=== PATIENT | male | born 1950 | race Caucasian/White ===

== ENCOUNTER 2023-09-30 08:40 | Outpatient (REF) | payer MEDICARE, SELFPAY ==
--- NOTE | ~2023-09-30 | XR_ITS ---
EXAMINATION: XR LUMBOSACRAL SPINE WITH OBLIQUES CLINICAL INFORMATION: Lumbar degenerative disc disease. COMPARISON: None available. TECHNIQUE: AP, both oblique, and lateral views of the lumbar spine. Lateral view of the lumbosacral junction. FINDINGS: There is bony demineralization. There is a mild lumbar levoscoliosis. There is a moderate T12 anterior wedge compression fracture. There are mild L1 and L4 anterior compression fractures. There is moderate rightward disc space narrowing at L3-L4, and moderately severe disc space narrowing is seen at L4-L5 and L5-S1. There is multi-level lumbar spondylosis and facet arthropathy. There are aortoiliac atherosclerotic calcifications. XR/XR lumbar spine 4V min IMPRESSION: 1. Moderate T12 and mild L1 and L4 upper endplate anterior wedge compression fractures are seen. 2. There is moderate degenerative disc disease at L3-L4, and moderately severe degenerative disc disease is seen at L4-L5 and L5-S1. 3. There is multi-level lumbar spondylosis and facet arthropathy. 4. There is a mild lumbar levoscoliosis.
== END 2023-09-30 08:41 | disposition home or self-care (01) ==
LOC: HO.HOSX 08:40
PROVIDERS: PCP Internal Medicine; Visit Provider Neurological Surgery
DX: M51.36 Other intervertebral disc degeneration, lumbar region (principal)
CPT/HCPCS: 72110; 99202

== ENCOUNTER 2023-09-30 08:40 | Outpatient (AMB) | payer MEDICARE, SELFPAY ==
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
== END 2023-09-30 10:01 | disposition home or self-care (01) ==
PROVIDERS: PCP Internal Medicine; Visit Provider Neurological Surgery
DX: M51.36 Other intervertebral disc degeneration, lumbar region (principal)
CPT/HCPCS: 99204